=== PATIENT | male | born 1970 | race Caucasian/White ===

== ENCOUNTER 2019-06-16 01:04 | Emergency (ER) | payer OTHER ==
--- NOTE | 2019-06-16 01:23 | EDPHYS ---
Physician Documentation [facility] Name: Oscar Garcia Age: 49 yrs Sex: Male : 1970 Arrival Date: 06/16/2019 Time: 01:05 Bed 13 Private MD: ED Physician Dk Slater HPI: 06/16 01:18 This 49 yrs old Male presents to ER via Wheelchair with complaints of Chest tay Pain. 01:18 The patient or guardian reports chest pain that is located primarily in the substernal tay area, anterior chest wall. Onset: just prior to arrival, this morning. The pain does not radiate. Associated signs and symptoms: The patient has no apparent associated signs or symptoms. The chest pain is described as a heaviness, causing indigestion. Modifying factors: The symptoms are alleviated by nothing. the symptoms are aggravated by nothing. Severity of pain: At its worst the pain was moderate in the emergency department the pain is unchanged. The patient has not experienced similar symptoms in the past. Historical: - Allergies: 01:15 No Known Allergies; jb4 - Home Meds: 01:15 aspirin 81 mg Oral chew [Active]; vitamin k [Active]; jb4 - PMHx: 01:15 None; jb4 - PSHx: 01:15 kidney; jb4 - Immunization history:: Adult Immunizations up to date. - Social history:: Smoking status: Patient/guardian denies using tobacco, Patient uses alcohol, occasionally. - Family history:: not pertinent. - Ebola Screening: : No symptoms or risks identified at this time. ROS: 01:18 Constitutional: Negative for fever, chills, and weight loss, Eyes: Negative for injury, tay pain, redness, and discharge, ENT: Negative for injury, pain, and discharge, Neck: Negative for injury, pain, and swelling, Respiratory: Negative for shortness of breath, cough, wheezing, and pleuritic chest pain, Abdomen/GI: Negative for abdominal pain, nausea, vomiting, diarrhea, and constipation, Back: Negative for injury and pain, : Negative for injury, bleeding, discharge, and swelling, MS/Extremity: Negative for injury and deformity, Skin: Negative for injury, rash, and discoloration, Neuro: Negative for headache, weakness, numbness, tingling, and seizure, Psych: Negative for depression, anxiety, suicide ideation, homicidal ideation, and hallucinations, Allergy/Immunology: Negative for hives, rash, and allergies, Endocrine: Negative for neck swelling, polydipsia, polyuria, polyphagia, and marked weight changes, Hematologic/Lymphatic: Negative for swollen nodes, abnormal bleeding, and unusual bruising. 01:18 Cardiovascular: Positive for chest pain, of the chest. Exam: 01:18 Constitutional: This is a well developed, well nourished patient who is awake, alert, tay and in no acute distress. Head/Face: Normocephalic, atraumatic. Eyes: Pupils equal round and reactive to light, extra-ocular motions intact. Lids and lashes normal. Conjunctiva and sclera are non-icteric and not injected. Cornea within normal limits. Periorbital areas with no swelling, redness, or edema. ENT: Nares patent. No nasal discharge, no septal abnormalities noted. Tympanic membranes are normal and external auditory canals are clear. Oropharynx with no redness, swelling, or masses, exudates, or evidence of obstruction, uvula midline. Mucous membranes moist. Neck: Trachea midline, no thyromegaly or masses palpated, and no cervical lymphadenopathy. Supple, full range of motion without nuchal rigidity, or vertebral point tenderness. No Meningismus. Chest/axilla: Normal chest wall appearance and motion. Nontender with no deformity. No lesions are appreciated. Respiratory: Lungs have equal breath sounds bilaterally, clear to auscultation and percussion. No rales, rhonchi or wheezes noted. No increased work of breathing, no retractions or nasal flaring. Abdomen/GI: Soft, non-tender, with normal bowel sounds. No distension or tympany. No guarding or rebound. No evidence of tenderness throughout. Back: No spinal tenderness. No costovertebral tenderness. Full range of motion. Male : Normal genitalia with no discharge or lesions. Skin: Warm, dry with normal turgor. Normal color with no rashes, no lesions, and no evidence of cellulitis. MS/ Extremity: Pulses equal, no cyanosis. Neurovascular intact. Full, normal range of motion. Neuro: Awake and alert, GCS 15, oriented to person, place, time, and situation. Cranial nerves II-XII grossly intact. Motor strength 5/5 in all extremities. Sensory grossly intact. Cerebellar exam normal. Normal gait. Psych: Awake, alert, with orientation to person, place and time. Behavior, mood, and affect are within normal limits. 01:18 Cardiovascular: Rate: normal, Rhythm: regular, Pulses: Pulses are 4+ in bilateral radial, brachial, femoral, popliteal, posterior tibial and and dorsalis pedis arteries.. Edema: is not appreciated, JVD: is not appreciated. Vital Signs: 01:15 BP 167 / 104; Pulse 63; Resp 18; Temp 98.4(TE); Pulse Ox 97% on R/A; Weight 117.93 kg jb4 (R); Height 6 ft. 0 in. (182.88 cm); Pain 6/10; 01:45 BP 130 / 80; Pulse 61; Resp 18; Pulse Ox 99% on R/A; jb4 02:26 BP 130 / 92; Pulse 61; Resp 16; Pulse Ox 99% on R/A; jb4 01:15 Body Mass Index 35.26 (117.93 kg, 182.88 cm) 4 MDM: 01:06 Patient medically screened. [facility] 01:20 Data reviewed: vital signs, nurses notes, lab test result(s), EKG, radiologic studies, tay plain films. 06/16 01:18 Order name: Basic Metabolic Panel; Complete Time: 01:55 [facility] 06/16 01:18 Order name: CBC with Diff; Complete Time: 01:55 [facility] 06/16 01:18 Order name: LFT's; Complete Time: 01:55 [facility] 06/16 01:18 Order name: Magnesium; Complete Time: 01:55 [facility] 06/16 01:18 Order name: NT PRO-BNP; Complete Time: 01:55 [facility] 06/16 01:18 Order name: PT-INR; Complete Time: 01:55 [facility] 06/16 01:18 Order name: Troponin (emerg Dept Use Only); Complete Time: 01:55 [facility] 06/16 01:18 Order name: XRAY Chest (1 view) [facility] 06/16 01:18 Order name: Lipase; Complete Time: 01:55 [facility] 06/16 01:18 Order name: EKG; Complete Time: 01:19 [facility] 06/16 01:18 Order name: Cardiac monitoring; Complete Time: 01:21 [facility] 06/16 01:18 Order name: EKG - Nurse/Tech; Complete Time: 01:21 [facility] 06/16 01:18 Order name: IV Saline Lock; Complete Time: : [facility] 06/16 01:18 Order name: Labs collected and sent; Complete Time: [facility] 06/16 01:18 Order name: O2 Per Protocol; Complete Time: [facility] 06/16 01:18 Order name: O2 Sat Monitoring; Complete Time: : [facility] Administered Medications: 01:38 Drug: Lopressor (metoprolol TARTRATE) 50 mg Route: PO; jb4 02:20 Follow up: Response: No adverse reaction; Blood pressure is lowered jb4 01:38 Drug: Aspirin Chewable Tablet 324 mg Route: PO; jb4 02:42 Follow up: Response: No adverse reaction jb4 01:40 Drug: Pepcid 20 mg Route: IVP; Site: right antecubital; jb4 02:42 Follow up: Response: No adverse reaction jb4 01:48 Drug: Zofran 4 mg Route: IVP; Site: right antecubital; jb4 02:42 Follow up: Response: No adverse reaction jb4 02:19 Not Given (Patient Refused): morphine 4 mg IVP once; RASS on ADMIN: Combtv4, Very jb4 Agttd3, Agttd2, Rstlss1, AlertClm0, Drwsy-1, Lt Sdtn-2, Mod Sdtn-3, Dp Sdtn-4, UnArsble-5 02:20 Not Given (Hemodynamic Parameters): Lopressor 5 mg IVP once; Hold for SBP <100 or HR jb4 <60. 02:46 Not Given (Patient Refused): Lovenox 1 mg/kg Sub-Q once jb4 Disposition: 06/16/19 02:27 Patient has left against medical advice. Impression: Other chest pain, Angina pectoris, Essential (primary) hypertension. - Patients states they are going to Home. - Condition is Undetermined. - Discharge Instructions: Nonspecific Chest Pain, Hypertension, Heart Attack, Heart Disease Prevention, Nonspecific Chest Pain, [id number], Hypertension, [id number]-Drzn, How to Take Your Blood Pressure, [id number], Aspirin and Your Heart. Follow up: Private Physician; When: Upon discharge from the Emergency Department; Reason: Recheck today's complaints, Continuance of care, Re-evaluation by your physician. - Problem is new. - Symptoms have improved. Signatures: Dispatcher [employer] EDAR Tara Saunders RN RN mw Anderson, Corey, MD MD cha Bryson, James, RN RN jb4 Corrections: (The following items were deleted from the chart) 01:50 01:22 Hospitalization Ordered by Jalen Katz DO for Inpatient Admission. Preliminary diagnosis is Chest pain, unspecified. Bed requested for Telemetry/MedSurg (Inpatient). Status is Inpatient Admission. Condition is Fair. Problem is new. Symptoms have improved. UTI on Admission? No. tay 02:25 01:50 06/16/2019 01:22 Hospitalization Ordered by Jalen Katz DO for Inpatient tay Admission. Preliminary diagnosis is Chest pain, unspecified. Bed requested for Telemetry/MedSurg (Inpatient). Status is Inpatient Admission. Condition is Fair. Problem is new. Symptoms have improved. UTI on Admission? No. 02:41 01:18 Urine Dipstick-Ancillary ordered. [facility] jb4 02:48 02:27 06/16/2019 02:27 Patients has left against medical advice. Impression: Other jb4 chest pain; Angina pectoris; Essential (primary) hypertension. Patient states they are going to Home. Condition is Undetermined. Follow up: Private Physician; When: Upon discharge from the Emergency Department; Reason: Recheck today's complaints, Continuance of care, Re-evaluation by your physician. Problem is new. Symptoms have improved. tay
--- NOTE | 2019-06-16 01:23 | ER ---
Nurse's Notes [facility] Name: Oscar Garcia Age: 49 yrs Sex: Male : 1970 Arrival Date: 06/16/2019 Time: 01:05 Bed 13 Private MD: Diagnosis: Other chest pain;Angina pectoris;Essential (primary) hypertension Presentation: 06/16 01:15 Presenting complaint: Patient states: I woke up around 2330 with chest pain. Transition jb4 of care: patient was not received from another setting of care. Onset of symptoms was June 16, 2019. Risk Assessment: Do you want to hurt yourself or someone else? Patient reports no desire to harm self or others. Initial Sepsis Screen: Does the patient meet any 2 criteria? No. Patient's initial sepsis screen is negative. Does the patient have a suspected source of infection? No. Patient's initial sepsis screen is negative. Care prior to arrival: None. 01:15 Method Of Arrival: Wheelchair jb4 01:15 Acuity: MAXIMO 3 jb4 Historical: - Allergies: 01:15 No Known Allergies; jb4 - Home Meds: 01:15 aspirin 81 mg Oral chew [Active]; vitamin k [Active]; jb4 - PMHx: 01:15 None; jb4 - PSHx: 01:15 kidney; jb4 - Immunization history:: Adult Immunizations up to date. - Social history:: Smoking status: Patient/guardian denies using tobacco, Patient uses alcohol, occasionally. - Family history:: not pertinent. - Ebola Screening: : No symptoms or risks identified at this time. Screenin:15 Abuse screen: Denies threats or abuse. Nutritional screening: No deficits noted. jb4 Tuberculosis screening: No symptoms or risk factors identified. Fall Risk None identified. Assessment: 01:15 General: Appears in no apparent distress. uncomfortable, Behavior is cooperative, jb4 anxious. Pain: Complains of pain in mid-sternal area Pain does not radiate. Pain currently is 6 out of 10 on a pain scale. Quality of pain is described as pressure, Pain began 2 hours ago. Neuro: Level of Consciousness is awake, alert, obeys commands, Oriented to person, place, time, situation. Cardiovascular: Patient's skin is warm and dry. Rhythm is sinus rhythm. Respiratory: Airway is patent Respiratory effort is even, unlabored, Respiratory pattern is regular, symmetrical. GI: No deficits noted. No signs and/or symptoms were reported involving the gastrointestinal system. : No deficits noted. No signs and/or symptoms were reported regarding the genitourinary system. EENT: No deficits noted. No signs and/or symptoms were reported regarding the EENT system. Derm: Skin is intact, Skin is pink, warm \T\ dry. Musculoskeletal: Circulation, motion, and sensation intact. Range of motion: intact in all extremities. 02:18 Reassessment: Patient appears in no apparent distress at this time. Patient and/or jb4 family updated on plan of care and expected duration. Pain level reassessed. Patient is alert, oriented x 3, equal unlabored respirations, skin warm/dry/pink. P reports wanting to leave instead of being admitted. ED provider notified. 02:43 Reassessment: Patient appears in no apparent distress at this time. Patient and/or jb4 family updated on plan of care and expected duration. Pain level reassessed. Patient is alert, oriented x 3, equal unlabored respirations, skin warm/dry/pink. Explained to patient that even though initial cardiac test were negative, a cardiac event could still have taken place or could still take place causing worsening of symptoms up to . PT verbalized understanding of this information and still wishes to leave AMA. AMA form signed, pt left ED AMA. Vital Signs: 01:15 BP 167 / 104; Pulse 63; Resp 18; Temp 98.4(TE); Pulse Ox 97% on R/A; Weight 117.93 kg [facility] (R); Height 6 ft. 0 in. (182.88 cm); Pain 6/10; 01:45 BP 130 / 80; Pulse 61; Resp 18; Pulse Ox 99% on R/A; jb4 02:26 BP 130 / 92; Pulse 61; Resp 16; Pulse Ox 99% on R/A; jb4 01:15 Body Mass Index 35.26 (117.93 kg, 182.88 cm) 4 ED Course: 01:05 Patient arrived in ED. ds1 01:05 Dk Slater MD is Attending Physician. tay 01:15 Alejandro Kennedy RN is Primary Nurse. jb4 01:15 Arm band placed on right wrist. jb4 01:15 Patient has correct armband on for positive identification. Bed in low position. Call jb4 light in reach. Side rails up X 1. site monitor on. Pulse ox on. NIBP on. 01:15 Patient maintains SpO2 saturation greater than 95% on room air. jb4 01:16 Triage completed. jb4 01:21 Jalen Katz DO is Hospitalizing Provider. tay 01:23 Inserted saline lock: 20 gauge in left antecubital area, using aseptic technique. Blood jd2 collected. 01:35 XRAY Chest (1 view) In Process Unspecified. EDMS 02:45 No provider procedures requiring assistance completed. IV discontinued, intact, jb4 bleeding controlled, No redness/swelling at site. Pressure dressing applied. Administered Medications: 01:38 Drug: Lopressor (metoprolol TARTRATE) 50 mg Route: PO; jb4 02:20 Follow up: Response: No adverse reaction; Blood pressure is lowered jb4 01:38 Drug: Aspirin Chewable Tablet 324 mg Route: PO; jb4 02:42 Follow up: Response: No adverse reaction jb4 01:40 Drug: Pepcid 20 mg Route: IVP; Site: right antecubital; jb4 02:42 Follow up: Response: No adverse reaction jb4 01:48 Drug: Zofran 4 mg Route: IVP; Site: right antecubital; jb4 02:42 Follow up: Response: No adverse reaction jb4 02:19 Not Given (Patient Refused): morphine 4 mg IVP once; RASS on ADMIN: Combtv4, Very jb4 Agttd3, Agttd2, Rstlss1, AlertClm0, Drwsy-1, Lt Sdtn-2, Mod Sdtn-3, Dp Sdtn-4, UnArsble-5 02:20 Not Given (Hemodynamic Parameters): Lopressor 5 mg IVP once; Hold for SBP <100 or HR jb4 <60. 02:46 Not Given (Patient Refused): Lovenox 1 mg/kg Sub-Q once jb4 Outcome: 01:22 Decision to Hospitalize by Provider. tay 02:45 AMA jb4 02:45 Condition: stable 02:48 Patient left the ED. jb4 Signatures: Dispatcher [employer] EDDk Cordero MD MD cha Sanford, Demi ds1 Juan Zamora jd2 Alejandro Kennedy, RN RN jb4 Corrections: (The following items were deleted from the chart) 03:07 02:43 Reassessment: Patient appears in no apparent distress at this time. Patient jb4 and/or family updated on plan of care and expected duration. Pain level reassessed. Patient is alert, oriented x 3, equal unlabored respirations, skin warm/dry/pink. pt left AMA jb4
[2019-06-16] MEDS ORDERED: METOPROLOL TAR 50 MG TAB ONE (01:28)
[2019-06-16] MEDS ORDERED: METOPROLOL TARTRATE 5 MG/5 ML INJ IV ONE (01:29)
[2019-06-16] MEDS ORDERED: ONDANSETRON 4 MG/2 ML VIAL ONE (01:29)
[2019-06-16] MEDS ORDERED: ENOXAPARIN 80 MG/0.8 ML SQ ONE (01:29)
[2019-06-16] MEDS ORDERED: MORPHINE 4 MG/ML SYR ONE (01:29)
[2019-06-16] MEDS ORDERED: ENOXAPARIN 40 MG/0.4 ML SQ ONE (01:30)
[2019-06-16] MEDS ORDERED: ASPIRIN 81 MG CHEWABLE TABLET ONE (01:33)
[2019-06-16] MEDS ORDERED: FAMOTIDINE 20 MG/2 ML VIAL IV ONE (01:33)
[2019-06-16 01:36] LABS: Absolute Lymphocytes (CBC) 2.1 K/uL (0.7-4.9); Basophils % 0.5 % (0-1.3); Hematocrit 41.6 % (39.6-49.0); Protime INR 0.95; RBC Red Blood Cell Count 4.54 M/uL (4.33-5.43)
[2019-06-16 01:54] LABS: ALT/SGPT 48 U/L (12-78); AST/SGOT 26 U/L (15-37); Alkaline Phosphatase 51 U/L (45-117); BUN Blood Urea Nitrogen 19 mg/dL (7-18); Bicarbonate 27 mmol/L (21-32); Bilirubin Direct 0.1 mg/dL (0-0.2); Bilirubin Total 0.6 mg/dL (0.2-1.0); Glucose Level 122 mg/dL (74-106); Lipase 149 U/L (73-393); NT PRO-BNP 13 pg/mL (<125); Potassium 3.8 mmol/L (3.5-5.1); Protein, Total 7.2 g/dL (6.4-8.2); Sodium Level 140 mmol/L (136-145); Troponin (Emerg Dept Use Only) < 0.02 ng/mL (0.0-0.045)
--- NOTE | 2019-06-16 01:57 | P.HP ---
Certification for Inpatient Patient admitted to: Observation With expected LOS: <2 Midnights Patient will require the following post-hospital care: None Practitioner: I am a practitioner with admitting privileges, knowledge of patient current condition, hospital course, and medical plan of care. Services: Services provided to patient in accordance with Admission requirements found in Title 42 Section 412.3 of the Code of Federal Regulations Patient History Date of Service: 06/16/19 Primary Care Provider: Dr. Viveros([place]) Reason for admission: Chest pain History of Present Illness: 49-year-old male presented to the emergency room with chest pain. Patient reported chest pain tonight. It started around 11:30 p.m.. It woke him up. Chest pain was to the midsternal region. He rates the pain about 5/ 10. He reports no radiation of pain. No nausea, vomiting. This did not feel like heartburn to him. Patient with history of CVA in 2014. He only takes aspirin 81 mg daily and vitamin K. He reports having heart catheterization 1 year ago in [facility] which was unremarkable. He came to the ER for further evaluation. In the ER blood pressure was slightly elevated at 140/95. CBC unremarkable. CMP pending at this time. Troponin pending. EKG showed no significant EKG changes. Patient was admitted for observation and further evaluation. When I saw the patient the ER, he appeared improved. He did not appear in any respiratory distress. Patient is working in the area. As mentioned above heart catheterization per patient done 1 year ago was unremarkable. Home medications list reviewed: Yes - Past Medical/Surgical History Diabetic: No -: Obesity -: History of CVA -: Kidney surgery in the distant past Psychosocial/ Personal History: Patient is . He currently works in the area. - Family History Family History: Reviewed- Non-Contributory - Social History Smoking Status: Never smoker Alcohol use: Yes CD- Drugs: No Caffeine use: Yes Place of Residence: Home Review of Systems General: As per HPI Eyes: Unremarkable ENT: Unremarkable Respiratory: Unremarkable Cardiovascular: Chest Pain, As per HPI Gastrointestinal: Unremarkable Genitourinary: Unremarkable Musculoskeletal: Unremarkable Integumentary: Unremarkable Neurological: Unremarkable Lymphatics: Unremarkable Physical Examination - Physical Exam General: Alert, In no apparent distress, Oriented x3, Cooperative HEENT: Atraumatic, Normocephalic, PERRLA, Mucous membr. moist/pink Neck: Supple, No Thyromegaly Respiratory: Clear to auscultation bilaterally, Normal air movement Cardiovascular: Normal pulses, Regular rate/rhythm Gastrointestinal: Normal bowel sounds, Soft and benign, Non-distended, No ascites, No tenderness, No masses, No rebound, No guarding Musculoskeletal: No erythema, No tenderness, No warmth Integumentary: No tenderness/swelling, No erythema, No warmth, No cyanosis Neurological: Normal speech, Normal strength at 5/5 x4 extr, Normal tone, Normal affect Lymphatics: No axilla or inguinal lymphadenopathy - Studies Laboratory Data (last 24 hrs) 06/16/19 01:20: PT 11.2, INR 0.95 06/16/19 01:20: WBC 5.3, Hgb 14.9, Hct 41.6, Plt Count 147 L Assessment and Plan - Plan Impression: Chest pain Hypertension Obesity History of CVA Plan: Chest pain: Patient will be admitted for further observation and evaluation. Will monitor cardiac enzymes and telemetry. Will order echocardiogram to further evaluate. Will also order cardiac stress test to further assess. Patient reports history of having heart catheterization 1 year ago in [facility]. Will try to obtain results. Cardiology consulted to further evaluate. Will obtain fasting lipid panel and tsh. Continue aspirin, Lipitor, metoprolol. Will provide DVT prophylaxis-Lovenox. Daytime hospitalist will continue his care. Anticipate discharge today if workup unremarkable. Hypertension: Blood pressure elevated. Will start metoprolol 12.5 mg 1 pill twice daily. Patient will likely continue with medication at discharge. Obesity: Will calculate BMI. Address lifestyle modification education. History of CVA: Continue aspirin and Lipitor. Will obtain fasting lipid panel. Discharge Plan: Home Plan to discharge in: 24 Hours - Advance Directives Does patient have a Living Will: No Does patient have a Durable POA for Healthcare: No - Code Status/Comfort Care Code Status Assessed: Yes (Patient is full code) Time Spent Managing Pts Care (In Minutes): 55
--- NOTE | 2019-06-16 02:32 | P.DS ---
Admission Date: 06/16/19 Discharge Date: 06/16/19 Primary Care Provider: Dr. Viveros([place]) Disposition: AMA-LEFT AGAINST MEDICAL ADVIC Discharge Condition: GOOD Reason for Admission: Chest pain Brief History of Present Illness: 49-year-old male presented to the emergency room with chest pain. Patient reported chest pain tonight. It started around 11:30 p.m.. It woke him up. Chest pain was to the midsternal region. He rates the pain about 5/ 10. He reports no radiation of pain. No nausea, vomiting. This did not feel like heartburn to him. Patient with history of CVA in 2015. He only takes aspirin 81 mg daily and vitamin K. He reports having heart catheterization 1 year ago in [facility] which was unremarkable. He came to the ER for further evaluation. In the ER blood pressure was slightly elevated at 140/95. CBC unremarkable. CMP pending at this time. Troponin pending. EKG showed no significant EKG changes. Patient was admitted for observation and further evaluation. When I saw the patient the ER, he appeared improved. He did not appear in any respiratory distress. Patient is working in the area. As mentioned above heart catheterization per patient done 1 year ago was unremarkable. Hospital Course: Upon admission, the patient did not want to stay in the Hospital. He was to have gotten ECHO and cardiac stress test to assess his chest pain. Nurses report that the wanted to leave AMA. He understand the risks of leaving. AMA formed signed by the patient. Patient left AMA. General: Other (Please see prior exam.) Laboratory Data at Discharge: WBC 5.3 K/uL (4.3-10.9) 06/16/19 01:20 Hgb 14.9 g/dL (13.6-17.9) 06/16/19 01:20 Hct 41.6 % (39.6-49.0) 06/16/19 01:20 Plt Count 147 K/uL (152-406) L 06/16/19 01:20 PT 11.2 SECONDS (9.5-12.5) 06/16/19 01:20 INR 0.95 06/16/19 01:20 Sodium 140 mmol/L (136-145) 06/16/19 01:20 Potassium 3.8 mmol/L (3.5-5.1) 06/16/19 01:20 BUN 19 mg/dL (7-18) H 06/16/19 01:20 Creatinine 1.29 mg/dL (0.55-1.3) 06/16/19 01:20 Glucose 122 mg/dL (74-106) H 06/16/19 01:20 Magnesium 2.0 mg/dL (1.8-2.4) 06/16/19 01:20 Total Bilirubin 0.6 mg/dL (0.2-1.0) 06/16/19 01:20 AST 26 U/L (15-37) 06/16/19 01:20 ALT 48 U/L (12-78) 06/16/19 01:20 Alkaline Phosphatase 51 U/L (45-117) 06/16/19 01:20 Lipase 149 U/L (73-393) 06/16/19 01:20 Patient Discharge Instructions: Patient left AMA. Recommend follow up with his PCP. He will likely require Cardiology evaluation as an outpatient. Diet: AHA Activity: Ad gerald Time spent managing pt's care (in minutes): 15
[2019-06-16 03:10] VITALS: TEMP 98.4
[2019-06-16 03:11] VITALS: O2SAT 99
[2019-06-16 03:13] VITALS: BP 130/92
--- NOTE | 2019-06-16 07:14 | RAD REPORT ---
EXAM DESCRIPTION: RAD - Chest Single View - 06/16/2019 1:34 am CLINICAL HISTORY: Chest pain COMPARISON: None. TECHNIQUE: AP portable chest image was obtained 0129 hours . FINDINGS: Low lung volumes noted. Body habitus, portable technique and low lung volumes accentuate h eart, vasculature and lung markings. Heart size is normal range for shallow inspiration. No measurabl e pleural effusion and no pneumothorax. No acute bony abnormality seen. No acute aortic findings susp ected. IMPRESSION: No acute cardiopulmonary process. Body habitus and shallow inspiration affects could mask earliest stages of interstitial edema or infi ltrate.
--- NOTE | 2019-06-16 07:23 | EKG ---
Test Date: 2019-06-16 Test Time: 01:10:49 [place] [facility]: RYNE MEASUREMENT RESULTS: Intervals: Rate: 80 MD: 146 QRSD: 100 QT: 390 QTc: 449 [place]: P: 58 MD: 146 QRS: -28 T: 61 INTERPRETIVE STATEMENTS: Normal sinus rhythm Incomplete right bundle branch block Septal infarct, age undetermined Abnormal ECG No previous ECG available for comparison Electronically Signed On 06-16-19 07:22:56 CDT by Yonatan Licea
== END 2019-06-16 02:48 | disposition left against medical advice (07) ==
LOC: ER 01:04 → ERHOLD 01:46 → UNDOADMOB 01:46 → ER 02:48
DX: I20.9 Angina pectoris, unspecified (principal); I10 Essential (primary) hypertension; E66.9 Obesity, unspecified; Z79.82 Long term (current) use of aspirin; Z86.73 Personal history of transient ischemic attack (TIA), and cerebral infarction without residual deficits
CPT/HCPCS: 93005; 85025; 80048; 36415; 83735; 85610; 80076; 84484; 83690; 83880; 71045; 96375; 96374; 99285; J2405; J1650